=== PATIENT | male | born 2000 | race Caucasian/White ===

== ENCOUNTER 2020-06-28 22:22 | Emergency (ER) | payer OTHER, MEDICAID, SELFPAY ==
--- NOTE | ~2020-06-28 | US_ITS ---
EXAMINATION: US scrotum doppler EXAM DATE: 06/29/2020 00:19 INDICATION: R testicle pain Right testicular pain . TECHNIQUE: Multiple grayscale and Doppler images of the testicles and scrotum were obtained bilateral ly. There is no prior study for comparison. FINDINGS: Right testicle measures 4.6 x 3.7 x 2.4 cm and is morphologically normal. Low resistance Doppler shruthi w confirmed. The epididymis is unremarkable. There is no hydrocele or varicocele. Left testicle measures 4.2 x 3.1 x 2.6 cm and is morphologically normal. Low resistance Doppler flow confirmed. The epididymis is unremarkable. There is no hydrocele or varicocele. IMPRESSION: 1. Unremarkable testicular/scrotal ultrasound exam. Reviewed, dictated and finalized at location B. [facility]
[2020-06-28 22:55] VITALS: BP 137/79; PULSE 66; RESP 20; TEMP 36.3; O2SAT 98
--- NOTE | 2020-06-28 23:15 | PC.NURSE ---
patient brought back to ED room 11 with c/o right testicle swelling. see initial notes. patient has been in our waiting area due to no beds in this ED. father present. resting on stretcher. in gown. denies needs.
--- NOTE | 2020-06-28 23:41 | ED.MALEGU ---
HPI - Male Genitourinary General Chief complaint: Urogenital-Male Stated complaint: right testicular pain Time Seen by Provider: 06/28/20 23:00 Source: patient Mode of arrival: ambulatory Limitations: no limitations History of Present Illness HPI Narrative: A 19-year-old male comes into the emergency department with complaints of pain in his right testicle. Patient also states that he felt a slight mass on the upper end of his testicle. He states that it has been very tender, he notes that this has been present for the last couple of days. Patient states that he has not been sexually active in the last several months. He denies any dysuria, rashes or discharge. Related Data Allergies Allergy/AdvReac Type Severity Reaction Status Date / Time Sulfa (Sulfonamide Allergy Rash Verified 06/29/20 00:28 Antibiotics) Review of Systems Review of Systems: Narrative: CONSTITUTIONAL: Denies fever, chills, or sweats. EYES: Denies visual changes, redness, or discharge. ENT: Denies rhinorrhea, congestion, sore throat, or otalgia. CARDIOVASCULAR: Denies chest pain, palpitations, or edema. RESPIRATORY: Denies cough or dyspnea. GASTROINTESTINAL: Denies abdominal pain, nausea, vomiting, or diarrhea. GENITOURINARY: Denies dysuria or hematuria. Endorses testicular pain SKIN: Denies rash or itching. MUSCULOSKELETAL: Denies back pain, joint pain, or myalgia. NEUROLOGIC: Denies headache, numbness, dizziness, or weakness. PSYCHIATRIC: Denies anxiety or depression. [facility] Social History Social History Gender identity (if verbalized by the patient): Male Exam Narrative: Exam Narrative: GENERAL: Well-appearing, well-nourished, and in no acute distress. HEAD: Normocephalic, atraumatic. EYES: PERRLA and EOMI. ENT: Nares clear, no rhinorrhea or epistaxis. Mucous membranes moist. NECK: Supple. No adenopathy or masses. No carotid bruits or JVD CHEST: Clear to auscultation. No respiratory distress. No wheezes rales or rhonchi HEART: Regular rate and rhythm. No murmur heard. Normal peripheral pulses. ABDOMEN: Soft, nontender, nondistended, normal active bowel sounds. : Circumcised male. Right testicle tender to palpation. Small mass palpated on the upper posterior aspect of the right testicle consistent with possible hydrocele versus varicocele. EXTREMITIES: Normal range of motion. No edema. SKIN: Warm, dry, no rash. NEURO: No focal deficits. Alert and oriented x3. PSYCH: Normal mood and affect. Course Vital Signs Vital signs: Vital Signs Temperature 36.3 C L 06/28/20 22:55 Pulse Rate 66 06/28/20 22:55 Respiratory Rate 20 06/28/20 22:55 Blood Pressure 137/79 06/28/20 22:55 Pulse Oximetry 98 06/28/20 22:55 Temperature 36.3 C L 06/28/20 22:55 Pulse Rate 63 06/29/20 00:26 Respiratory Rate 15 06/29/20 00:26 Blood Pressure 138/72 06/29/20 00:26 Pulse Oximetry 98 06/29/20 00:26 MDM - Male Genitourinary MDM Narrative Medical decision making narrative: In brief this 19-year-old male came in with complaints of pain and swelling in his right testicle. Patient was concerned as he was feeling mass in the posterior aspect of his testicle. Initially on my exam patient was very tender, sent for ultrasound to rule out scrotal pathology such as torsion or mass. Ultrasound yielded essentially a benign exam. On further examination patient pointed out the mass that he was seen. After examining him much more closely I feel this is likely his epididymis versus a possible hydrocele. Patient encouraged to rest, will be given information for urology to follow-up with. Differential Diagnosis Differential diagnosis: Likely urinary tract infection, priapism, urethritis, epididymitis, genital herpes simplex, prostatitis, acute retention of urine and inguinal hernia Imaging Data Attestation: I personally reviewed and interpreted this imaging study as follows: Radiologist's im
[2020-06-29 00:26] VITALS: BP 138/72; PULSE 63; RESP 15; O2SAT 98
[2020-06-29 01:16] VITALS: BP 122/79; PULSE 69; RESP 15; O2SAT 100
== END 2020-06-29 01:17 | disposition home or self-care (01) ==
PROVIDERS: Emergency Provider Emergency Medicine; PCP Family Medicine Sports Medicine
DX: N50.811 Right testicular pain (principal)
CPT/HCPCS: 76870; 93976; 99284

== ENCOUNTER 2020-11-07 11:34 | Emergency (ER) | payer OTHER, MEDICAID, SELFPAY ==
[2020-11-07 11:45] VITALS: BP 119/83; PULSE 75; RESP 16; TEMP 36.5; O2SAT 98
--- NOTE | 2020-11-07 11:53 | ED.WOUNDLAC ---
HPI - Wound/Laceration General Chief Complaint: Wound/Laceration Stated Complaint: Laceration on face Time Seen by Provider: 11/07/20 11:53 Source: patient and family Mode of arrival: ambulatory Limitations: no limitations History of Present Illness HPI narrative: 20 male to the [facility] with complaints of a syncopal episode this morning when he woke up. States that he woke up, stood up and fell, hitting face on something, reports positive loss of consciousness, unknown time. Has laceration to his upper lip, 2 puncture wounds to the bridge of his nose. Bleeding is controlled. Unknown last Tdap. Patient has not had his Covid vaccine. Patient states that he was drinking beer last night and does smoke marijuana on a regular basis. Related Data Home Medications Medication Instructions Recorded Confirmed albuterol sulfate 2 inh INHALATION DIRECTED 11/07/20 11/07/20 penicillin V potassium 500 mg PO DIRECTED 11/07/20 11/07/20 Allergies Allergy/AdvReac Type Severity Reaction Status Date / Time Sulfa (Sulfonamide Allergy Rash Verified 06/29/20 00:28 Antibiotics) Review of Systems Review of Systems: All systems reviewed & are unremarkable except as noted in HPI and below Constitutional: Constitutional: Reports no additional constitutional complaints, Denies chills and Denies fever(s) Eyes: Eyes: Reports no additional eye complaints, Denies change in vision and Denies photophobia ENT: Reports system reviewed and no additional complaints, except as documented, Denies dysphagia, Reports vertigo, Reports nasal congestion and Denies sore throat Cardiovascular: Cardiovascular: Reports no additional cardiovascular complaints and Denies chest pain Respiratory: Respiratory: Reports no additional respiratory complaints, Denies cough and Denies dyspnea Gastrointestinal: Gastrointestinal: Reports no additional gastrointestinal complaints, Denies abdominal pain, Denies nausea and Denies vomiting Musculoskeletal: Musculoskeletal: Reports no additional musculoskeletal complaints, Denies back pain, Denies myalgias and Denies muscle cramps Integumentary/Breasts: Skin/Breast: Reports as per HPI Comments: 1 cm laceration to top lip center, 2 small abrasions noted to bridge of nose Neurologic: Reports as per HPI, Reports syncope, Reports headache(s), Denies numbness and Denies weakness Psychiatric: Psychiatric: Reports no additional psychiatric complaints Allergic/Immunologic: Allergic/Immunologic: Reports no additional allergic/immunologic complaints [facility] Social History Social History (Updated 11/07/20 @ 12:38 by Trinity Draper) Substance use type: marijuana Gender identity (if verbalized by the patient): Male Comments At the time of my signature, I reviewed and agree with the nursing past medical, surgical, social, and family history. There is no relevant family history pertinent to the patient complaint. Exam Const: General: no acute distress, alert and ill appearing acutely Nutritional Appearance: well nourished Orientation/consciousness: patient oriented x3 and No confusion Limitations: no limitations HENMT: Head: normal to inspection, skull fracture palpable and abrasion Ears: hearing grossly normal bilaterally, external ears normal, TM's normal bilaterally and EAC's normal General nose exam: No nasal discharge present and Abnormal external nose present nasal abrasion Nose image: 1. Laceration Face and sinus: normal facial exam and face symmetric Mouth: Yes Normal oral and palatal mucosa present and Yes tongue normal Throat: posterior oropharynx normal, tonsils normal and uvula midline Eyes: Conjunctivae: conjunctivae normal Pupils: Equal, round and reactive pupils present EOM: EOMs intact bilaterally Direct Ophthalmoscopy: no photophobia Neck: Neck: normal visual inspection, no lymphadenopathy and no meningeal signs Chest: Chest palpation & inspection: normal inspection of the chest an
--- NOTE | 2020-11-07 12:01 | ECG_ITS ---
Measurements Intervals [place] Rate: 73 P: 78 NH: 153 QRS: 79 QRSD: 96 T: 69 QT: 373 QTc: 413 Interpretive Statements SINUS RHYTHM ST ELEVATION IN ANT/INF LEADS- PROBABLY EARLY REPOLARIZATION BORDERLINE ECG Electronically Signed On 11-07-2020 15:22:06 CDT by Iván Reyes D.O.
[2020-11-07 12:11] VITALS: BP 115/62; BP 130/69; BP 130/73; PULSE 65; PULSE 86; PULSE 95
== END 2020-11-07 12:40 | disposition short-term general hospital (02) ==
LOC: EXPCOLL 11:38
PROVIDERS: Emergency Provider Nurse Practitioner; PCP Family Medicine Sports Medicine
DX: R55 Syncope and collapse (principal)
CPT/HCPCS: 93005; 99213; G0463

== ENCOUNTER 2020-11-07 13:08 | Emergency (ER) | payer OTHER, MEDICAID, SELFPAY ==
[2020-11-07] VITALS (30 sets, daily range): BP systolic 115–153; BP diastolic 58–100; PULSE 70–115; RESP 8–18; TEMP 36.6; O2SAT 96–100
--- NOTE | ~2020-11-07 | CT_ITS ---
EXAMINATION: CT brain wo con, CT facial bones wo con EXAM DATE: 11/07/2020 17:26 INDICATION: Fall, head injury, syncope. Hit nose. Initial encounter. TECHNIQUE: Spiral CT of the head was performed without contrast. Axial, coronal and sagittal images were reviewed. Spiral CT of the facial bones was performed without contrast. Axial images were revie wed. Coronal and sagittal reformatted images were also reviewed. The dose-length product (DLP) for this examination was 605.33 (accession [id number]), 286.17 (accession [id number]) mGy-cm. Th e exposure was tailored according to patient size, and iterative reconstruction (ASIR) was used as ad ditional dose reduction technique. There is no prior study for comparison. FINDINGS: HEAD CT: There is no acute intraparenchymal hemorrhage. No evidence of intraparenchymal brain mass l esion. No evidence of acute infarction. There is no mass effect or midline shift. There is no obstru ctive hydrocephalus suspected. There are no extra-axial collections. There are no calvarial acute f ractures. FACIAL CT: Possible acute nondisplaced nasal septal and left nasal bone fractures. The orbits, globe s and extraocular muscles are unremarkable. Soft tissue is unremarkable. The visualized sinuses a nd mastoid air cells are well aerated. Mild to moderate rightward nasal septal deviation. IMPRESSION: 1. No acute intracranial findings. 2. Possible acute nondisplaced nasal septal and left nasal bone fractures. Reviewed, dictated and finalized at location A. IMPRESSION: 1. No acute intracranial findings. 2. Possible acute nondisplaced nasal septal and left nasal bone fractures.
--- NOTE | 2020-11-07 13:38 | ECG_ITS ---
Measurements Intervals [place] Rate: 87 P: 82 VA: 147 QRS: 79 QRSD: 90 T: 66 QT: 348 QTc: 419 Interpretive Statements SINUS RHYTHM POSSIBLE LEFT ATRIAL ENLARGEMENT ST ELEVATION IN ANTEROLAT/INF LEADS- PROBABLY EARLY REPOLARIZATION ABNORMALITY BORDERLINE ECG Electronically Signed On 11-07-2020 15:25:35 CDT by Iván Reyes D.O.
[2020-11-07 14:09] LABS: Basophils Absolute Auto 0.1 K/mm3 (0.0-0.1); Basophils Percent Auto 0.7 % (0.2-1.2); Eosinophils Absolute Auto 0.2 K/mm3 (0-0.3); Hematocrit 48.2 % (42.0-52.0); Immature Granulocyte Absolute 0.04 K/mm3 (0.00-0.031); Immature Granulocyte Percent A 0.3 % (0-0.5); Lymphocytes Absolute Auto 1.78 K/mm3 (0.9-3.2); Lymphocytes Percent Auto 15.5 % (18.3-44.2); Mean Corpuscular HGB Conc 33.2 g/dl (32-36); Mean Corpuscular Hemoglobin 29.2 pg (26-34); Mean Platelet Volume 10.1 fl (7.4-10.4); Monocytes Absolute Auto 0.8 K/mm3 (0.1-0.6); Monocytes Percent Auto 7.1 % (2.6-8.5); Neutrophils Absolute Auto 8.5 K/mm3 (1.3-6.7); Neutrophils Percent Auto 74.4 % (45.5-73.1); Platelet Count Result 261 k/mm3 (150-375); Red Blood Count 5.48 M/mm3 (4.6-6.20); Red Cell Distribution Width 12.1 % (11.5-14.5); White Blood Count 11.5 K/mm3 (4.5-10.0)
[2020-11-07 14:20] LABS: Anion Gap 12 mmol/L (8-16); Blood Urea Nitrogen 12 mg/dL (9-20); Calcium 10.3 mg/dL (8.4-10.2); Carbon Dioxide 25 mmol/L (22-30); Chloride 102 mmol/L (98-107); Estimated CRCL calculation 97 ml/min; Estimated Glomerular Filt Rate > 60; Glucose 105 mg/dL (75-110); Sodium 139 mmol/L (137-145)
[2020-11-07] MEDS: SODIUM CHLORIDE 0.9% IV 1,000 ML 999 ML ×2 (14:48→16:11)
--- NOTE | 2020-11-07 15:56 | PC.NURSE ---
pt states he feels some better s/p his fluids.
[2020-11-07 16:55] LABS: Amphetamine Screen Urine Negative (Negative); Barbiturate Screen Urine Negative (Negative); Benzodiazepines Screen Urine Negative (Negative); Cannabinoid Screen Urine Positive (Negative); Cocaine Screen Urine Positive (Negative); Methadone Screen Urine Negative (Negative); Opiate Screen Urine Negative (Negative); Phencyclidine Screen Urine Negative (Negative)
[2020-11-07 16:57] LABS: Alanine Aminotransferase 16 U/L (4-50); Alkaline Phosphatase 121 U/L (38-126); Aspartate Amino Transferase 27 U/L (17-59); Bilirubin,Total 0.9 mg/dL (0.2-1.3); Creatine Kinase 54 U/L (55-170)
--- NOTE | 2020-11-07 17:01 | ED.SYNCOPE ---
HPI - Syncope General Chief Complaint: Syncope Stated Complaint: syncope Time Seen by Provider: 11/07/20 16:13 Source: patient, family and RN notes reviewed Mode of arrival: ambulatory Limitations: no limitations History of Present Illness HPI narrative: Patient is 20 years old white male got up quickly from bed this morning, got lightheadedness and felt hit his face on a table, complaining of upper lip laceration and nasal contusion. Currently patient is asymptomatic. Patient smokes, does not drink and uses marijuana and cocaine. Patient reports quite a bit of drinking last night, Related Data Home Medications Medication Instructions Recorded Confirmed albuterol sulfate 2 inh INHALATION DIRECTED 11/07/20 11/07/20 beclomethasone dipropionate [Qvar] mcg INHALATION 11/07/20 Allergies Allergy/AdvReac Type Severity Reaction Status Date / Time Sulfa (Sulfonamide Allergy Rash Verified 11/07/20 14:31 Antibiotics) Review of Systems Review of Systems: Narrative: CONSTITUTIONAL: Denies fever, chills, or sweats. EYES: Denies visual changes, redness, or discharge. ENT: Denies rhinorrhea, congestion, sore throat, or otalgia. CARDIOVASCULAR: Denies chest pain, palpitations, or edema. RESPIRATORY: Denies cough or dyspnea. GASTROINTESTINAL: Denies abdominal pain, nausea, vomiting, or diarrhea. GENITOURINARY: Denies dysuria or hematuria. SKIN: Denies rash or itching. MUSCULOSKELETAL: Denies back pain, joint pain, or myalgia. NEUROLOGIC: Denies headache, numbness, or weakness. PSYCHIATRIC: Denies anxiety or depression. [facility] Social History Social History Substance use type: marijuana Gender identity (if verbalized by the patient): Male Exam Narrative: Exam Narrative: General appearance: Well-developed, well-nourished Skin: Normal color, half centimeter subcutaneous laceration immediately under the nose on the upper lip Head: Normocephalic, nontraumatic Eyes: Clear conjunctiva ENT: Oropharynx normal, ears normal, nasal bridge abrasion and contusion Neck: Supple, nontender Chest and respiratory: Airway patent, no respiratory distress, no accessory muscle use Heart: Regular rate/rhythm Abdomen: Soft, nontender, no organomegaly, quiet bowel sounds Vascular: Normal peripheral pulses, normal capillary refill. Musculoskeletal: Normal range of motion, nontender back Neurologic: Alert and oriented ?3, CLAIMS ADJUSTER is normal as tested, no gross motor deficit Course Course Emergency Course: Stable, improving Vital Signs Vital signs: Vital Signs Temperature 36.6 C 11/07/20 13:32 Pulse Rate 100 11/07/20 13:32 Respiratory Rate 18 11/07/20 13:32 Blood Pressure 144/89 H 11/07/20 13:32 Pulse Oximetry 100 11/07/20 13:32 Temperature 36.6 C 11/07/20 13:32 Pulse Rate 73 11/07/20 18:34 Respiratory Rate 17 11/07/20 18:34 Blood Pressure 132/76 11/07/20 18:15 Pulse Oximetry 98 11/07/20 18:34 Procedures Laceration Laceration 1: Date: 11/07/20 Time: 17:13 Site: lip Size (cm): 0.5 Description: linear, clean and other (Immediately under the nose) Depth: simple, single layer Local Anesthetic: lidocaine 1% and with epi Amount of anesthesia used (mL): 2 Pre-repair: wound explored and deep structures intact ====== Skin Level ====== Skin layer closed with: other (Ethilon) Size (cm): 6-0 Number of sutures: 3 Technique: simple, interrupted ====== Subcutaneous Layer ====== ====== Muscle Layer ====== ====== Tendon Layer ====== MDM - Syncope MDM Narrative Medical decisi
--- NOTE | 2020-11-07 17:11 | PC.NURSE ---
suture set at bedside. mother remains at pts bedside. pt resting. no distress noted.
== END 2020-11-07 19:45 | disposition home or self-care (01) ==
PROVIDERS: Emergency Medicine; Emergency Provider Emergency Medicine; PCP Family Medicine Sports Medicine
DX: I95.1 Orthostatic hypotension (principal); F19.10 Other psychoactive substance abuse, uncomplicated; S01.511A Laceration without foreign body of lip, initial encounter; W06.XXXA Fall from bed, initial encounter
CPT/HCPCS: 12013; 36415; 70450; 70486; 80048; 80076; 80307; 82550; 85025; 93005; 96360; 96361; 99284; J7030

== ENCOUNTER 2025-03-09 20:16 | Emergency (ER) | payer OTHER, MEDICAID, SELFPAY ==
--- NOTE | 2025-03-09 21:06 | PC.NURSE ---
This RN called pt twice for triage. no answer
== END 2025-03-09 21:31 | disposition left against medical advice (07) ==
PROVIDERS: PCP Family Medicine Sports Medicine
DX: Z53.21 Procedure and treatment not carried out due to patient leaving prior to being seen by health care provider (principal)
CPT/HCPCS: 99199